=== PATIENT | female | born 1985 | race Caucasian/White ===

== ENCOUNTER 2016-09-07 19:40 | Emergency (ER) | payer OTHER ==
[~2016-09-07] VITALS: Ht 165.1 cm; Wt 62.1 kg
[~2016-09-07 19:40] MED LIST: IBUP800T PO; LORA0.5T PO; PREN1TAB52; QUET50TA5 PO; vicodin PO
[2016-09-07] MEDS ORDERED: SODIUM CHLORIDE 0.9% 1,000ML IVBOLUS ONE (20:00)
[2016-09-07] MEDS ORDERED: FAMOTIDINE 20 MG/2 ML IVP ONE (20:00)
[2016-09-07] MEDS ORDERED: ONDANSETRON 2MG/ML, 2ML IVPush ONE (20:00)
[2016-09-07 20:07] LABS: HEMOGLOBIN 15.9 g/dL (11.7-16.4)
[2016-09-07] MEDS ORDERED: MORPHINE SULFATE 4 MG/ML, 1ML ONE (20:11)
[2016-09-07] MEDS ORDERED: METOCLOPRAMIDE 5 MG/ML, 2ML ONE (20:11)
[2016-09-07] MEDS ORDERED: DIPHENHYDRAMINE 50 MG/ML, 1ML ONE (20:11)
[2016-09-07] MEDS ORDERED: FAMOTIDINE 20 MG/2 ML ONE (20:12)
[2016-09-07] MEDS ORDERED: ONDANSETRON 2MG/ML, 2ML ONE (20:12)
[2016-09-07 20:20] LABS: ASPARTATE AMINO TRANSFERASE 19 U/L (15-37); BLOOD UREA NITROGEN 18 mg/dL (7-18)
[2016-09-07] MEDS ORDERED: DIPHENHYDRAMINE 50 MG/ML, 1ML IVPush ONE (20:30)
[2016-09-07] MEDS ORDERED: morphine SULFATE 10 MG/ML, 1ML IVPush ONE (20:30)
[2016-09-07] MEDS ORDERED: METOCLOPRAMIDE 5 MG/ML, 2ML IVPush ONE (20:30)
[2016-09-07] MEDS ORDERED: SERT50TA5 PO (21:36)
[2016-09-07 21:52] LABS: PATH.CAST-FLAG NOT PRESENT; SPERM-FLAG NOT PRESENT; SRC-FLAG NOT PRESENT; XTAL-FLAG NOT PRESENT; YLC-FLAG NOT PRESENT
[2016-09-07 22:31] VITALS: BP 111/77
== END 2016-09-07 22:33 | disposition home or self-care (01) ==
LOC: ED 22:31
DX: R10.13 Epigastric pain (principal); R11.2 Nausea with vomiting, unspecified; F12.10 Cannabis abuse, uncomplicated
CPT/HCPCS: 36415; 80053; 81001; 84703; 85025; 96361; 96374; 96375; 99284; J1200; J2270; J2405; J2765; J7030; S0028

== ENCOUNTER 2017-11-18 11:00 | Emergency (ER) | payer OTHER ==
[~2017-11-18] VITALS: Ht 165.1 cm; Wt 66.2 kg
[~2017-11-18 11:00] MED LIST changes: +IBUP-1223 PO; -IBUP800T PO; +SERT50TA5 PO
[2017-11-18 11:42] LABS: ANION GAP 5 mmol/L (5-15); CALCIUM 8.5 mg/dL (8.5-10.1); CHLORIDE 108 mmol/L (98-107)
[2017-11-18 11:48] LABS: ALANINE AMINOTRANSFERASE 23 U/L (12-78); ALKALINE PHOSPHATASE 54 U/L (45-117); BILIRUBIN,TOTAL 0.6 mg/dL (0.2-1.0); TOTAL PROTEIN 7.7 g/dL (6.4-8.2)
[2017-11-18 12:14] LABS: BASOPHILS # (AUTO) 0.09 x10^3/uL (0-0.1); BASOPHILS % (AUTO) 1 % (0-1); EOSINOPHILS # (AUTO) 0.17 x10^3/uL (0-0.4); EOSINOPHILS % (AUTO) 2 % (1-7); LYMPHOCYTES # (AUTO) 2.05 x10^3/uL (1-3.4); LYMPHOCYTES % (AUTO) 23 % (22-44); MD NO; MEAN CORPUSCULAR HEMOGLOBIN 31.2 pg (27.0-34.8); MEAN CORPUSCULAR VOLUME 91.7 fL (80-100); MEAN PLATELET VOLUME 7.8 fL (7.4-10.4); MONOCYTES # (AUTO) 0.68 x10^3/uL (0.2-0.8); MONOCYTES % (AUTO) 8 % (2-9); NEUTROPHILS # (AUTO) 6.14 x10^3/uL (1.8-6.8); NEUTROPHILS % (AUTO) 67 % (42-75); PLATELET COUNT 348 x10^3/uL (130-400); RED BLOOD COUNT 4.78 x10^6/uL (3.82-5.3); RED CELL DISTRIBUTION WIDTH 12.9 % (9.6-15.2)
[2017-11-18] MEDS ORDERED: PROM12.55 PO (12:38)
[2017-11-18] MEDS ORDERED: BENTYL PO (12:38)
[2017-11-18 12:41] LABS: MICROSCOPIC NOT IND
[2017-11-18 12:43] LABS: CULTURE INDICATED? NO
[2017-11-18 13:38] VITALS: BP 118/71
== END 2017-11-18 13:52 | disposition home or self-care (01) ==
LOC: ED 13:46
DX: O20.0 Threatened abortion (principal); Z3A.00 Weeks of gestation of pregnancy not specified; Z90.721 Acquired absence of ovaries, unilateral
CPT/HCPCS: 36415; 76830; 80053; 81003; 84702; 85025; 86901; 99285

== ENCOUNTER 2018-09-13 13:02 | Outpatient (CLI) | payer OTHER ==
[~2018-09-13] VITALS: Ht 165.1 cm; Wt 78.2 kg
[~2018-09-13 13:02] MED LIST changes: +BENTYL PO; +PROM12.55 PO; +SERT50TA28 PO; -SERT50TA5 PO
[2018-09-13 13:33] VITALS: BP 106/65
== END 2018-09-13 14:50 | disposition home or self-care (01) ==
LOC: LDOP 13:02
PROVIDERS: ATTEND Obstetrics & Gynecology
DX: O26.892 Other specified pregnancy related conditions, second trimester (principal); R11.0 Nausea; R42 Dizziness and giddiness; R06.02 Shortness of breath; Z3A.26 26 weeks gestation of pregnancy
CPT/HCPCS: 59025; 99211; G0463

== ENCOUNTER 2019-01-07 06:01 | Inpatient (IN) | payer OTHER ==
[~2019-01-07] VITALS: Ht 162.6 cm; Wt 94.1 kg
== END 2019-01-08 17:07 | disposition home or self-care (01) | DRG 806 ==
LOC: LDIP 06:01 → 2NW 18:10
PROVIDERS: ADMIT Obstetrics & Gynecology; ATTEND Obstetrics & Gynecology
PROC: 10E0XZZ Delivery of Products of Conception, External Approach (ICD-10-PCS; principal; 2019-01-07)
PROC: 10907ZC Drainage of Amniotic Fluid, Therapeutic from Products of Conception, Via Natural or Artificial Opening (ICD-10-PCS; 2019-01-07)
PROC: 3E033VJ Introduction of Other Hormone into Peripheral Vein, Percutaneous Approach (ICD-10-PCS; 2019-01-07)
PROC: 0HQ9XZZ Repair Perineum Skin, External Approach (ICD-10-PCS; 2019-01-07)
PROC: 0UQMXZZ Repair Vulva, External Approach (ICD-10-PCS; 2019-01-07)
PROC: 3E0R3BZ Introduction of Anesthetic Agent into Spinal Canal, Percutaneous Approach (ICD-10-PCS; 2019-01-07)
PROC: 00HU33Z Insertion of Infusion Device into Spinal Canal, Percutaneous Approach (ICD-10-PCS; 2019-01-07)
DX: O69.1XX0 Labor and delivery complicated by cord around neck, with compression, not applicable or unspecified (principal); O99.354 Diseases of the nervous system complicating childbirth; Z37.0 Single live birth; O99.824 Streptococcus B carrier state complicating childbirth; O99.344 Other mental disorders complicating childbirth; O77.0 Labor and delivery complicated by meconium in amniotic fluid; O70.0 First degree perineal laceration during delivery; O71.82 Other specified trauma to perineum and vulva; G43.909 Migraine, unspecified, not intractable, without status migrainosus; F32.9 Major depressive disorder, single episode, unspecified; F41.9 Anxiety disorder, unspecified; Z3A.39 39 weeks gestation of pregnancy
CPT/HCPCS: 36415; 85025; 86850; 86900; G0378; J0290; J2310; J2405; J2540; J3010; J2590; J7120

== ENCOUNTER 2020-02-04 13:07 | Inpatient (IN) | payer OTHER ==
[~2020-02-04] VITALS: Ht 165.1 cm; Wt 84.2 kg
[~2020-02-04 13:07] MED LIST changes: +IBUP-1222 PO; +OXYC-302 PO; -PROM12.55 PO; +PROM12.57 PO
[2020-02-04 14:08] LABS: BASOPHILS # (AUTO) 0.03 x10^3/uL (0-0.1); BASOPHILS % (AUTO) 0 % (0-1); EOSINOPHILS # (AUTO) 0.04 x10^3/uL (0-0.4); EOSINOPHILS % (AUTO) 1 % (1-7); LYMPHOCYTES # (AUTO) 1.95 x10^3/uL (1-3.4); LYMPHOCYTES % (AUTO) 21 % (22-44); MD NO; MEAN CORPUSCULAR HEMOGLOBIN 30.3 pg (27.0-34.8); MEAN CORPUSCULAR HGB CONC 33.2 g/dL (32.4-35.8); MEAN CORPUSCULAR VOLUME 91.2 fL (80-100); MONOCYTES # (AUTO) 0.56 x10^3/uL (0.2-0.8); MONOCYTES % (AUTO) 6 % (2-9); NEUTROPHILS # (AUTO) 6.71 x10^3/uL (1.8-6.8); NEUTROPHILS % (AUTO) 72 % (42-75); PLATELET COUNT 324 x10^3/uL (130-400); RED BLOOD COUNT 5.07 x10^6/uL (3.82-5.3); RED CELL DISTRIBUTION WIDTH 12.8 % (9.6-15.2)
[2020-02-04 14:20] LABS: ALANINE AMINOTRANSFERASE 22 U/L (12-78); ANION GAP 8 mmol/L (5-15); CALCIUM 8.9 mg/dL (8.5-10.1); CHLORIDE 108 mmol/L (98-107); CREATININE 0.79 mg/dL (0.55-1.02)
--- NOTE | 2020-02-04 14:22 | NUR ---
PT DRESSED IN GOWN, PROVIDED WITH WARM BLANKETS. ULTRASOUND AT BEDSIDE. CALL LIGHT IN REACH.
[2020-02-04 14:23] LABS: ALKALINE PHOSPHATASE 60 U/L (45-117); BILIRUBIN,TOTAL 0.4 mg/dL (0.2-1.0); TOTAL PROTEIN 7.9 g/dL (6.4-8.2)
[2020-02-04] MEDS ORDERED: ONDANSETRON 2MG/ML, 2ML IVPush ONE (15:00)
[2020-02-04] MEDS ORDERED: SODIUM CHLORIDE FLUSH 10ML SYR IVF ONE (15:00)
[2020-02-04] MEDS ORDERED: MAALOX/HYOSCYAMINE/LIDOCAINE 45 ML BTL PO ONE (15:00)
[2020-02-04] MEDS ORDERED: SODIUM CHLORIDE 0.9% 1,000ML IVBOLUS ONE (15:00)
[2020-02-04] MEDS ORDERED: ONDANSETRON 2MG/ML, 2ML ONE (15:00)
[2020-02-04] MEDS ORDERED: HYDROmorphone 2 MG/ML, 1ML IVPush PRN (15:00)
[2020-02-04] MEDS ORDERED: MAALOX/HYOSCYAMINE/LIDOCAINE 45 ML BTL ONE (15:00)
[2020-02-04] MEDS ORDERED: HYDROmorphone 1 MG/ML, 1ML INJ ONE (15:00)
[2020-02-04] MEDS ORDERED: OMNIPAQUE 350 MG/ML, 100ML BOTTLE ONE (15:44)
--- NOTE | 2020-02-04 15:44 | NUR ---
PT RETURNED FROM CT, UP TO RESTROOM FOR URINE SAMPLE COLLECTION AT THIS TIME.
[2020-02-04 16:09] LABS: MICROSCOPIC NOT IND
[2020-02-04 16:13] LABS: HCG UR SG > 1.045 (1.003-1.030)
--- NOTE | 2020-02-04 16:24 | NUR ---
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
--- NOTE | 2020-02-04 16:38 | NUR ---
RADIATOR TESTER Alex ESPINOZA PAGED AGAIN @[phone]
--- NOTE | 2020-02-04 16:48 | NUR ---
CAR SEAT MAKER Alex ESPINOZA PAGED AGAIN@[phone]
--- NOTE | 2020-02-04 16:55 | NUR ---
Alex CALLED BACK @[phone].
--- NOTE | 2020-02-04 17:19 | NUR ---
REPORT TO DILLON CARRANZA RN. PT AWARE OF IMPENDING TRANSPORT. DENIES ANY FURTHER NEEDS. IV FLUIDS CONTINUE INFUSING AT THIS TIME.
[2020-02-04 17:33] LABS: HCT (SEDRATE) 46.3 % (34.6-47.8)
[2020-02-04 19:30] VITALS: BP 167/92
[2020-02-04] MEDS: HYDROcodone/APAP 5/325 TABLET PO PRN (19:42)
[2020-02-04 19:46] VITALS: BP 107/72
[2020-02-04] MEDS ORDERED: ONDANSETRON 2MG/ML, 2ML IVPush PRN (23:00)
[2020-02-04] MEDS ORDERED: LIDODERM 5% PATCH TD PRN (23:00)
[2020-02-05 01:20] VITALS: BP 96/62
[2020-02-05 01:42] VITALS: BP 111/74
[2020-02-05 01:55] VITALS: BP 96/62
[2020-02-05 05:37] LABS: BASOPHILS # (AUTO) 0.04 x10^3/uL (0-0.1); BASOPHILS % (AUTO) 1 % (0-1); EOSINOPHILS % (AUTO) 3 % (1-7); LYMPHOCYTES # (AUTO) 2.76 x10^3/uL (1-3.4); LYMPHOCYTES % (AUTO) 36 % (22-44); MD NO; MEAN CORPUSCULAR HEMOGLOBIN 30.4 pg (27.0-34.8); MEAN CORPUSCULAR HGB CONC 33.7 g/dL (32.4-35.8); MEAN CORPUSCULAR VOLUME 90.2 fL (80-100); MEAN PLATELET VOLUME 8.3 fL (7.4-10.4); MONOCYTES # (AUTO) 0.55 x10^3/uL (0.2-0.8); MONOCYTES % (AUTO) 7 % (2-9); NEUTROPHILS # (AUTO) 4.22 x10^3/uL (1.8-6.8); NEUTROPHILS % (AUTO) 54 % (42-75); PLATELET COUNT 263 x10^3/uL (130-400); RED BLOOD COUNT 4.51 x10^6/uL (3.82-5.3); RED CELL DISTRIBUTION WIDTH 13.1 % (9.6-15.2)
[2020-02-05 05:48] LABS: CHLORIDE 112 mmol/L (98-107)
[2020-02-05 05:54] LABS: ANION GAP 7 mmol/L (5-15); CALCIUM 8.3 mg/dL (8.5-10.1); CREATININE 0.68 mg/dL (0.55-1.02)
[2020-02-05 07:21] VITALS: BP 91/57
[2020-02-05] MEDS ORDERED: POTASSIUM CHLORIDE 20 MEQ in SODIUM CHLORIDE 0.9% 250 ML IV ONE (07:30)
[2020-02-05] MEDS ORDERED: PROPOFOL 50 ML ONE (10:54)
[2020-02-05] MEDS ORDERED: LIDOCAINE-MPF 2% ,5ML ONE ×2 (10:55→11:12)
[2020-02-05] MEDS ORDERED: PROPOFOL 10 MG/ML, 20ML ONE (11:12)
[2020-02-05] MEDS ORDERED: PROMETHAZINE 25 MG/ML, 1ML IVPush PRN (11:30)
[2020-02-05] MEDS ORDERED: PROMETHAZINE 25 MG SUPP PR PRN (11:30)
[2020-02-05] MEDS ORDERED: ACETAMINOPHEN 325 MG TABLET PO PRN (11:30)
[2020-02-05] MEDS ORDERED: ONDANSETRON 2MG/ML, 2ML IVPush PRN (11:30)
[2020-02-05] MEDS ORDERED: FENTANYL PF 100 MCG/2ML IV PRN (11:30)
[2020-02-05] MEDS ORDERED: LORazepam 2 MG/ML, 1ML IVPush PRN (11:30)
[2020-02-05] MEDS ORDERED: OXYcodone 5 MG/5 ML ORAL.SOL UDC PO PRN (11:30)
[2020-02-05] MEDS ORDERED: MEPERIDINE/PF 25MG/0.5ML IVPush PRN (11:30)
[2020-02-05] MEDS: HYDROcodone/APAP 5/325 TABLET PO PRN (12:12)
[2020-02-05 12:51] VITALS: BP 105/72
[2020-02-05] MEDS ORDERED: GOLYTELY 4,000ML ORAL.SOL PO ONE (19:00)
[2020-02-05 19:57] VITALS: BP 130/86
[2020-02-06] MEDS: HYDROcodone/APAP 5/325 TABLET PO PRN (00:09)
[2020-02-06 01:07] VITALS: BP 120/79
[2020-02-06 08:45] VITALS: BP 98/64
[2020-02-06] MEDS ORDERED: PROPOFOL 50 ML ONE (12:27)
[2020-02-06] MEDS ORDERED: ONDANSETRON 2MG/ML, 2ML IVPush PRN (12:30)
[2020-02-06] MEDS ORDERED: PROMETHAZINE 25 MG/ML, 1ML IVPush PRN (12:30)
[2020-02-06] MEDS ORDERED: HYDROmorphone 1 MG/ML, 1ML INJ IVPush PRN (12:30)
[2020-02-06] MEDS ORDERED: EPHEDRINE 50 MG/ML, 1ML IVPush PRN (12:30)
[2020-02-06] MEDS ORDERED: OXYcodone 5 MG/5 ML ORAL.SOL UDC PO PRN (12:30)
[2020-02-06] MEDS ORDERED: hydrALAzine 20 MG/ML, 1ML IV PRN (12:30)
[2020-02-06] MEDS ORDERED: MEPERIDINE/PF 25MG/0.5ML IVPush PRN (12:30)
[2020-02-06] MEDS ORDERED: ACETAMINOPHEN 325 MG TABLET PO PRN (12:30)
[2020-02-06] MEDS ORDERED: LABETALOL 5MG/ML, 20ML IV PRN (12:30)
[2020-02-06] MEDS ORDERED: FENTANYL PF 100 MCG/2ML IV PRN (12:30)
[2020-02-06] MEDS ORDERED: ONDANSETRON 2MG/ML, 2ML ONE (13:09)
== END 2020-02-06 16:40 | disposition home or self-care (01) | DRG 394 ==
LOC: ED 16:48 → EDIP 17:07 → 3N 17:38 → DCLOUNGE 02-06 16:28
PROVIDERS: ADMIT Family Medicine; ATTEND Family Medicine
PROC: 0DB68ZX Excision of Stomach, Via Natural or Artificial Opening Endoscopic, Diagnostic (ICD-10-PCS; 2020-02-05)
PROC: 0DB58ZX Excision of Esophagus, Via Natural or Artificial Opening Endoscopic, Diagnostic (ICD-10-PCS; 2020-02-05)
PROC: 0DB98ZX Excision of Duodenum, Via Natural or Artificial Opening Endoscopic, Diagnostic (ICD-10-PCS; principal; 2020-02-05 11:00)
PROC: 0DBB8ZX Excision of Ileum, Via Natural or Artificial Opening Endoscopic, Diagnostic (ICD-10-PCS; 2020-02-06)
PROC: 0DBE8ZX Excision of Large Intestine, Via Natural or Artificial Opening Endoscopic, Diagnostic (ICD-10-PCS; 2020-02-06)
DX: K64.8 Other hemorrhoids (principal); K92.0 Hematemesis; K52.9 Noninfective gastroenteritis and colitis, unspecified; E86.0 Dehydration; Z87.891 Personal history of nicotine dependence; Z20.828 Contact with and (suspected) exposure to other viral communicable diseases
CPT/HCPCS: 36415; 96374; 99285; J3490; 74177; 76700; 80048; 80053; 81003; 81025; 83690; 85025; 85651; 86850; 86900; 87635; 88305; G0378; J2405; J2704; J3480; Q9967; J7030; J7050

== ENCOUNTER 2020-11-07 13:23 | Outpatient (CLI) | payer OTHER ==
[~2020-11-07 13:23] MED LIST changes: -OXYC-302 PO; +OXYC1TAB14 PO
[2020-11-07] MEDS ORDERED: METF500T17 PO (13:52)
[2020-11-07] MEDS ORDERED: ACET-1600 PO (13:52)
[2020-11-07] MEDS ORDERED: PHEN37.53 PO (13:52)
[2020-11-07] MEDS ORDERED: bentyl (13:52)
[2020-11-07 14:33] LABS: BASOPHILS % (AUTO) 1 % (0-1); EOSINOPHILS % (AUTO) 1 % (1-7); LYMPHOCYTES % (AUTO) 20 % (22-44); MEAN CORPUSCULAR HEMOGLOBIN 31.2 pg (27.0-34.8); MEAN CORPUSCULAR HGB CONC 34.1 g/dL (32.4-35.8); MEAN PLATELET VOLUME 8.4 fL (7.4-10.4); MONOCYTES % (AUTO) 7 % (2-9); NEUTROPHILS % (AUTO) 71 % (42-75); PLATELET COUNT 313 x10^3/uL (130-400); RED BLOOD COUNT 4.81 x10^6/uL (3.82-5.3); RED CELL DISTRIBUTION WIDTH 14.4 % (9.6-15.2)
[2020-11-07 14:42] LABS: ANION GAP 7 mmol/L (5-15); CALCIUM 9.2 mg/dL (8.5-10.1); CHLORIDE 107 mmol/L (98-107)
[2020-11-07 14:49] LABS: CREATININE 0.76 mg/dL (0.55-1.02)
== END 2020-11-07 23:59 | disposition home or self-care (01) ==
LOC: STAR 13:23
PROVIDERS: ATTEND Obstetrics & Gynecology
DX: Z01.812 Encounter for preprocedural laboratory examination (principal); R10.2 Pelvic and perineal pain; N92.0 Excessive and frequent menstruation with regular cycle; Z20.822 Contact with and (suspected) exposure to COVID-19
CPT/HCPCS: 36415; 80048; 84702; 85025; U0003; U0005

== ENCOUNTER 2020-11-13 09:38 | Day surgery (SDC) | payer OTHER ==
[~2020-11-13] VITALS: Ht 165.1 cm; Wt 72.3 kg
[~2020-11-13 09:38] MED LIST changes: +ACET-1600 PO; +BUPIVACAINE/PF 0.25% ONE; +EPINEPHRINE 1 MG/ML, 1ML ONE; +FLUORESCEIN SODIUM 500 MG/5 ML ONE; +METF500T17 PO; +PHEN37.53 PO; +SODIUM CHLORIDE 0.9% 100 ML ONE; +VASOPRESSIN 20 UNIT/ML, 1ML ONE; +bentyl
[2020-11-13 10:09] VITALS: BP 103/69
[2020-11-13 10:16] LABS: HCG UR SG 1.027 (1.003-1.030)
[2020-11-13] MEDS: LACTATED RINGERS 1,000 ML IV SCH ×2 (10:23→16:58)
[2020-11-13] MEDS ORDERED: CHLORHEXIDINE 15 ML UDC PO ONE (10:30)
[2020-11-13] MEDS ORDERED: CEFAZOLIN 2,000 MG in SODIUM CHLORIDE 0.9% 50 ML IV ONE (10:30)
[2020-11-13] MEDS ORDERED: PROPOFOL 50 ML ONE ×2 (11:55→12:58)
[2020-11-13] MEDS ORDERED: MIDAZOLAM 1 MG/ML, 2ML ONE (11:56)
[2020-11-13] MEDS ORDERED: FENTANYL PF 250 MCG/5ML ONE ×2 (11:56→13:05)
[2020-11-13] MEDS ORDERED: ROCURONIUM 10 MG/ML,10ML ONE (11:59)
[2020-11-13] MEDS ORDERED: SUCCINYLCHOLINE 20 MG/ML, 10ML ONE (11:59)
[2020-11-13] MEDS ORDERED: KETOROLAC 30 MG/1 ML ONE (11:59)
[2020-11-13] MEDS ORDERED: ONDANSETRON 2MG/ML, 2ML ONE (11:59)
[2020-11-13] MEDS ORDERED: SUGAMMADEX 200 MG/2 ML IVPush ONE (11:59)
[2020-11-13] MEDS ORDERED: CEFAZOLIN 1,000 MG ONE (11:59)
[2020-11-13] MEDS ORDERED: DEXAMETHASONE 4 MG/ML, 1ML ONE (11:59)
[2020-11-13] MEDS ORDERED: VASOPRESSIN 20 UNIT/ML, 1ML IM ONE (12:19)
[2020-11-13] MEDS ORDERED: EPINEPHRINE 1 MG/ML, 1ML INFIL ONE (12:19)
[2020-11-13] MEDS ORDERED: BUPIVACAINE/PF 0.25% INFIL ONE (12:19)
[2020-11-13] MEDS ORDERED: PROMETHAZINE 25 MG/ML, 1ML IVPush PRN (12:30)
[2020-11-13] MEDS ORDERED: MEPERIDINE/PF 25MG/0.5ML IVPush PRN (12:30)
[2020-11-13] MEDS ORDERED: DIAZEPAM 5 MG/ML, 2ML IVPush PRN (12:30)
[2020-11-13] MEDS ORDERED: ONDANSETRON 2MG/ML, 2ML IVPush PRN (12:30)
[2020-11-13] MEDS ORDERED: OXYcodone 5 MG/5 ML ORAL.SOL UDC PO PRN (12:30)
[2020-11-13] MEDS ORDERED: ACETAMINOPHEN 325 MG TABLET PO PRN (12:30)
[2020-11-13] MEDS ORDERED: LABETALOL 5MG/ML, 20ML IV PRN (12:30)
[2020-11-13] MEDS ORDERED: DIPHENHYDRAMINE 50 MG/ML, 1ML IVPush PRN (12:30)
[2020-11-13] MEDS ORDERED: EPHEDRINE 50 MG/ML, 1ML IM PRN (12:30)
[2020-11-13] MEDS ORDERED: EPHEDRINE 50 MG/ML, 1ML IVPush PRN (12:30)
[2020-11-13] MEDS ORDERED: METHYLENE BLUE 50 MG/10 ML AMP ONE (13:30)
[2020-11-13] MEDS ORDERED: ACETAMINOPHEN 650 MG/20.3 ML UDC ONE (14:35)
[2020-11-13] MEDS ORDERED: FENTANYL PF 100 MCG/2ML ONE (14:35)
[2020-11-13] MEDS ORDERED: OXYcodone 5 MG/5 ML ORAL.SOL UDC ONE (14:35)
[2020-11-13] MEDS: FENTANYL PF 100 MCG/2ML IV PRN ×3 (14:45→15:15)
[2020-11-13] MEDS ORDERED: DIAZEPAM 5 MG/ML, 2ML ONE (14:51)
[2020-11-13] MEDS: HYDROmorphone 1 MG/ML, 1ML INJ IVPush PRN ×2 (15:56→19:15)
== END 2020-11-13 20:02 | disposition home or self-care (01) ==
LOC: OUT 09:38
PROVIDERS: ATTEND Obstetrics & Gynecology
DX: N92.0 Excessive and frequent menstruation with regular cycle (principal); N94.6 Dysmenorrhea, unspecified; D25.1 Intramural leiomyoma of uterus; N72 Inflammatory disease of cervix uteri; N83.8 Other noninflammatory disorders of ovary, fallopian tube and broad ligament; N80.3 Endometriosis of pelvic peritoneum; F41.9 Anxiety disorder, unspecified; F32.9 Major depressive disorder, single episode, unspecified; G43.909 Migraine, unspecified, not intractable, without status migrainosus; Z79.84 Long term (current) use of oral hypoglycemic drugs; Z79.899 Other long term (current) drug therapy; Z90.721 Acquired absence of ovaries, unilateral; Z82.61 Family history of arthritis; Z82.49 Family history of ischemic heart disease and other diseases of the circulatory system; Z80.0 Family history of malignant neoplasm of digestive organs
CPT/HCPCS: 36415; 58552; 81025; 86850; 86900; 88307; J0171; J0330; J0690; J1100; J1170; J1885; J2250; J2405; J2704; J3010; J3360; J7120; Q9968

== ENCOUNTER 2020-11-19 11:05 | Emergency (ER) | payer OTHER ==
[~2020-11-19] VITALS: Ht 165.1 cm; Wt 73.4 kg
[~2020-11-19 11:05] MED LIST changes: -BUPIVACAINE/PF 0.25% ONE; -EPINEPHRINE 1 MG/ML, 1ML ONE; -FLUORESCEIN SODIUM 500 MG/5 ML ONE; -SODIUM CHLORIDE 0.9% 100 ML ONE; -VASOPRESSIN 20 UNIT/ML, 1ML ONE
[2020-11-19 12:24] LABS: BASOPHILS % (AUTO) 1 % (0-1); EOSINOPHILS % (AUTO) 1 % (1-7); LYMPHOCYTES % (AUTO) 19 % (22-44); MEAN CORPUSCULAR HEMOGLOBIN 31.2 pg (27.0-34.8); MEAN CORPUSCULAR HGB CONC 33.9 g/dL (32.4-35.8); MEAN PLATELET VOLUME 8.1 fL (7.4-10.4); MONOCYTES % (AUTO) 7 % (2-9); NEUTROPHILS % (AUTO) 73 % (42-75); PLATELET COUNT 345 x10^3/uL (130-400); RED BLOOD COUNT 4.13 x10^6/uL (3.82-5.3); RED CELL DISTRIBUTION WIDTH 13.9 % (9.6-15.2)
[2020-11-19 12:34] LABS: CHLORIDE 110 mmol/L (98-107)
[2020-11-19 12:41] LABS: ALANINE AMINOTRANSFERASE 29 U/L (12-78); ALBUMIN 3.5 g/dL (3.4-5.0); ALKALINE PHOSPHATASE 74 U/L (45-117); ANION GAP 7 mmol/L (5-15); BILIRUBIN,TOTAL 0.7 mg/dL (0.2-1.0); CALCIUM 8.9 mg/dL (8.5-10.1); CREATININE 0.53 mg/dL (0.55-1.02); TOTAL PROTEIN 7.2 g/dL (6.4-8.2)
--- NOTE | 2020-11-19 13:00 | NUR ---
pt presents to ed with c/o lower abd pain bilateral, painful urination, and pain in vagina. pt states they have not had BM since last wednesday and had hysterectomy on wednesday. pt a&o, resps even and unlabored, vss, nadn.
--- NOTE | 2020-11-19 13:02 | NUR ---
tire bagger: Pt ambulatory to room from lobby at this time.
--- NOTE | 2020-11-19 13:18 | NUR ---
pt ambulatory to bathroom with steady gait.
--- NOTE | 2020-11-19 13:44 | NUR ---
ua sent, warm blanket provided, vss, angel[place].
[2020-11-19 13:49] LABS: MICROSCOPIC NOT IND
[2020-11-19] MEDS ORDERED: PINK LADY ENEMA 490 ML BOTTLE PR ONE (14:00)
--- NOTE | 2020-11-19 14:13 | NUR ---
pt resting in bed, a&o, resps even and unlabored, vss, nadn. request for pink lady enema sent to pharmacy.
[2020-11-19 15:45] VITALS: BP 106/69
--- NOTE | 2020-11-19 16:45 | NUR ---
enema administered, pt actively having BM. awaiting to finish BM then dc
[2020-11-19] MEDS ORDERED: DICYCLOMINE 20 MG TABLET ONE (17:16)
[2020-11-19] MEDS ORDERED: OXYcodone/APAP 7.5/325MG TABLET ONE (17:16)
[2020-11-19] MEDS ORDERED: OXYcodone/APAP 7.5/325MG TABLET PO ONE (17:30)
[2020-11-19] MEDS ORDERED: DICYCLOMINE 20 MG TABLET PO ONE (17:30)
--- NOTE | 2020-11-19 18:04 | NUR ---
discharge instructions reviewed, pt verbalized understanding. ambulatory to discharge with steady gait.
== END 2020-11-19 18:06 | disposition home or self-care (01) ==
LOC: ED 13:32
DX: R10.84 Generalized abdominal pain (principal); K59.00 Constipation, unspecified; R30.0 Dysuria; Z90.710 Acquired absence of both cervix and uterus; Z90.722 Acquired absence of ovaries, bilateral
CPT/HCPCS: 36415; 74022; 80053; 81003; 83690; 85025; 99285